=== PATIENT | male | born 1990 | race Caucasian/White ===

== ENCOUNTER 2020-12-06 07:45 | Emergency (ER) | payer MEDICAID, SELFPAY ==
[2020-12-06 07:58] VITALS: BP 131/87; PULSE 50; RESP 18; TEMP 36; O2SAT 100
--- NOTE | 2020-12-06 08:01 | W.ED.GENAD ---
Discharge Plan Disposition Patient Disposition: AGAINST MEDICAL ADVICE Condition: Poor Discharge Details Chief Complaint: Abd Prob Clinical Impression: Acute appendicitis Primary Care Provider: Sarah,Local ED Provider: Arron Vera Home Meds and New Rx's Prescriptions: No Action aspirin 325 MG tablet 650 mg PO PRNRF: 0 ibuprofen 800 MG tablet 800 mg PO TID PRN PRNQty: 30 RF: 0 buprenorphine-naloxone [Suboxone] 8-2 mg Tablet, Sublingual 2 tab SUBLINGUAL DAILY RF: 0 Medical Decision Making 30 yo male with prior history of substance abuse now on suboxone, states he does smoke tobacco and marijuana and drinks occasionally, comes in with abdominal pain. He states on Wednesday he noticed some discomfort in his mid abdomen that resolved and has not had pain since. He has felt well since then and this morning he woke up with severe right sided mid to lower abdominal pain. HE also has nausea and vomit several times. He denies fevers, chest pain, dyspnea. On exam he has a tender rlq and right mid abdomen, no left sided or right upper abdominal tenderness. No back pain or cva tenderness. No urinary symptoms, no testicle pain or swelling. History and exam concerning for possible appendicitis vs pancreatitis vs kidney stone, will obtain labs and ct and reevaluate pt has appendicitis on ct. Discussed with patient and advised he would likely need surgery and ordered antibiotics. I discussed all findings with the patient. He is caox4 and has capacity to make his own decisions. He does not want to stay and wants to leave ama. he understands risks of leaving including permanent disability and and is willing to accept these risks and at present time does not want to stay and would leave against medical advise. I asked if he had any family he could talk to or I could talk to try and get more input on him staying and he is going to talk with his girfriend. He per nursing left before I could reassess him. He left against medical advise and had capacity to make his own decisions and was clinically sober. Differential Diagnosis Differential Diagnosis: appendicitis, kidney stone, pancreatitis Imaging Data Radiologic Study: Attestation: I personally reviewed and interpreted this imaging study as follows: Imaging: CT Scan Radiologist's impression: IMPRESSION: 1. Appendix measuring up to 1 cm in diameter with an enhancing wall and Elsie appendiceal inflammation. High-density material is seen in the mid appendix suspicious for appendicoliths. The findings are suspicious for acute appendicitis. Please correlate clinically. No evidence of abscess or free air. 2. Results of this exam have been verbally communicated with provider HPI General Mode of arrival: ambulatory. Date/Time Provider Initiated Documentation: 12/06/20 07:49. Limitations to Documentation: no limitations. Information obtained by: patient. History of Present Illness 30 year old M presents to the emergency department with the chief complaint of abdominal pain, described as severe, Quality is described as stabbing and aching, and is localized to the abdomen. Patient reports no radiation. Patient started experiencing this hour(s) (3) and it has been constant. No relieving factors improve symptom(s), No exacerbating factors reported . Patient notes nausea/vomiting. Patient did receive the following treatments prior to arrival, none Related Data Home Medications Medication Instructions Recorded Confirmed aspirin 650 mg PO PRN 10/24/12 06/17/14 ibuprofen 800 mg PO TID PRN PRN #30 tab 10/24/12 06/17/14 buprenorphine-naloxone [Suboxone] 2 tab SUBLINGUAL DAILY 12/06/20 12/06/20 Previous Rx's Medication Instructions Recorded ibuprofen 800 mg PO TID PRN PRN #30 tab 10/24/12 Allergies Allergy/AdvReac Type Severity Reaction Status Date / Time No Known Allergies Allergy Unverified 12/06/20 08:02 Review of Systems All systems reviewed & are unremarkable except as noted in HPI and below Constitutional Constitutional: Denies chills, Denies fever(s) and Denies weakness Cardiovascular Cardiovascular: Denies chest pain and Denies dyspnea Respiratory Respiratory: Denies cough and Denies dyspnea Gastrointestinal Gastrointestinal: Denies abdominal pain, Denies nausea and Denies vomiting Musculoskeletal Musculoskeletal: Denies joint swelling Neurologic Neurologic: Denies weakness [facility] Social History Smoking/Tobacco Use Status: Current every day Tobacco Type: cigarettes Smoking risk assessment performed?: Yes Alcohol Intake: current Alcohol Intake frequency: a few times a week Drug use: Occasionally Substance use type: marijuana Exam Const General: no acute distress Orientation: alert HENMT Head: normal to inspection Ears: external ears normal General nose exam: external nose normal Mouth: moist mucous membranes Eyes General: appearance normal, both eyes and all related structures Neck Neck: normal visual inspection Resp Effort & Inspection: normal respiratory effort and able to speak in complete sentences Cardio Rate: regular rate GI Palpation: soft and tender Skin General skin exam: no rashes or lesions noted Neuro General: patient alert and patient oriented x3 Extrem General: normal to inspection Psych Mental Status: mental status grossly normal
--- NOTE | 2020-12-06 08:15 | DI.CT_ITS ---
Exam(s) CT ABDOMEN PELVIS W EXAM: CT ABDOMEN PELVIS W CLINICAL HISTORY: right sided abdomen pain TECHNIQUE: Imaging Protocol: Axial computed tomography images with coronal and sagittal reformatted images were created and reviewed CONTRAST MATERIAL: Intravenous: Omnipaque 350 Contrast volume:100 mL Oral: No COMPARISON: No exams were available for comparison FINDINGS: ABDOMEN: Lung Bases: Normal where visualized. Liver: Normal density. No measurable mass. Portal, Superior Mesenteric, and Splenic Veins: Unremarkable. Gallbladder and Biliary Tract: No radiodense calculus or dilation. Pancreas: Normal density, no abnormal calcifications or inflammatory process. Spleen: Normal. Adrenals: No masses seen. Kidneys: Normal size, contour and axis. No radiodense stones or obstructive uropathy. No masses seen. Abdominal Aorta: Abdominal portion non-dilated. Bowel: No obstruction or bowel wall thickening. There is thickening of the wall of the appendix which measures up to 1 cm in diameter. Elsie appendiceal inflammatory changes are present. There is high density material seen within the appendix suspicious for appendicoliths. Peritoneal Cavity: There is a tiny amount of free fluid in the pelvis. No free air. Lymph Nodes: Within normal limits. Bones: Within normal limits for the patient's age. Soft Tissues: Unremarkable. PELVIS: Bladder: The urinary bladder is incompletely distended. No gross abnormality is identified. Reproductive Organs: Unremarkable as visualized. Lymph Nodes: Within normal limits. Bones: Within normal limits for the patient's age. IMPRESSION: 1. Appendix measuring up to 1 cm in diameter with an enhancing wall and Elsie appendiceal inflammation . High-density material is seen in the mid appendix suspicious for appendicoliths. The findings are suspicious for acute appendicitis. Please correlate clinically. No evidence of abscess or free air . 2. Results of this exam have been verbally communicated with provider. RADIATION DOSE DELIVERED: 656.29mGy.cm Total DLP DATA REPOSITORY: All CT scans at this facility are submitted to the National Radiology Data Registry (NRDR) Dose Index Registry (DIR) with the [employer] (ACR). RADIATION OPTIMIZATION: All CT scans at this facility use at least one of these dose optimization te chniques: automated exposure control; mA and/or kV adjustment per patient size (includes targeted exa ms where dose is matched to clinical indication); or iterative reconstruction.
[2020-12-06] MEDS: Normal Saline 1,000 ML 1000 ML IV (08:23)
[2020-12-06] MEDS: Normal Saline Flush 10 ML SYR IVP (08:24)
[2020-12-06] MEDS: Ondansetron 4 MG/2 ML VIAL IVP (08:32)
[2020-12-06] MEDS: Buprenorphine/Naloxone 8 mg/2 mg FILM 2 EACH SL (08:32)
[2020-12-06] MEDS: Ketorolac 15 MG/ML VIAL IVP (08:32)
[2020-12-06 09:03] LABS: Abs Immature Grans 0.06 10^3/uL (0.0-0.06); Absolute Eosinophil Count 0.16 10^3/uL (0.0-0.7); Basophils % 0.3; Eosinophils % 0.9; HCT 44.9 % (40.0-50.0); HGB 15.6 g/dL (13.5-17.5); Immature Grans % 0.3; Lymphocytes % 9.4; MCH 30.4 pg (27.0-33.0); MCHC 34.7 % (32.0-36.0); MCV 87.4 fL (80-95); MPV 9.7 fL (8.0-11.0); Monocytes % 5.1; Nucleated RBC 0 %; Platelet Count 287 10^3/uL (130-400); RBC 5.14 10^6/uL (4.36-5.78); RDW 13.7 % (11.8-14.1); RDW-SD 44.1 fL; WBC 17.57 10^3/uL (4.4-10.8)
[2020-12-06 09:05] LABS: Absolute Basophil Count 0.05 10^3/uL (0.0-0.2); Absolute Lymphocyte Count 1.65 10^3/uL (1.2-3.4); Absolute Neutrophil Count 14.76 10^3/uL (1.2-6.7)
[2020-12-06 09:11] LABS: Bilirubin Negative (Negative); Blood Negative (Negative); Clarity Cloudy (Clear); Glucose Negative (Negative); Ketones 15 mg/dL (Negative); Leukocyte Esterase Negative (Negative); Nitrite Negative (Negative); Urobilinogen 0.2 EU/dL (Up TO 0.2); pH 8.5 (5-8)
[2020-12-06 09:18] LABS: ALT 18 U/L (16-63); AST 19 U/L (15-37); Albumin 3.8 g/dL (3.4-5.0); Alkaline Phosphatase 62 U/L (46-116); Anion Gap 8.1 mmol/L (3-11); BUN 14 mg/dL (7-18); Bilirubin, Direct 0.1 mg/dL (0.0-0.2); Bilirubin, Total 0.7 mg/dL (0.2-1.0); CO2 26.9 mmol/L (21.0-32.0); CREATININE 0.9 mg/dL (0.70-1.30); Calcium 8.7 mg/dL (8.5-10.1); Chloride 107 mmol/L (98-107); Glucose 101 mg/dL (74-106); Lipase 84 U/L (73-393); Potassium 3.7 mmol/L (3.5-5.1); Sodium 142 mmol/L (136-145)
[2020-12-06 09:21] LABS: Bacteria Negative HPF (Negative); C & S Indicated? No; Casts 0-2 Hyaline LPF (Negative); Crystals Moderate Amorphous HPF (Negative); Epithelial Cells Rare HPF (Negative); Mucus Negative (Negative); RBC Negative HPF (0-2); WBC Negative HPF (0-5)
[2020-12-06] MEDS: Omnipaque 350 MG/ML 100 ML BTL IJ (09:25)
--- NOTE | 2020-12-06 12:32 | NUR.NOTE ---
Nursing Note: [facility] ED called, pt left AMA, requesting that we send the visit information. I faxed to them the MD note, RN note, labs, CT report and the CT sent electronically to the facility. Whit Gray
== END 2020-12-06 10:33 | disposition left against medical advice (07) ==
PROVIDERS: Emergency Provider Emergency Medicine
DX: K35.80 Unspecified acute appendicitis (principal); R11.2 Nausea with vomiting, unspecified; Z53.29 Procedure and treatment not carried out because of patient's decision for other reasons
CPT/HCPCS: 36415; 80053; 83690; 96361; 96374; 96375; 99285; 74177; 81003; 81015; 82248; 85025; 99284; J1885; J2405; J3490

== ENCOUNTER 2021-10-25 16:32 | Emergency (ER) | payer MEDICAID, SELFPAY ==
[2021-10-25 16:45] VITALS: BP 158/109; PULSE 109; RESP 16; TEMP 37.2; O2SAT 98
[2021-10-25] MEDS: Acetaminophen 325 MG TAB 650 MG PO (17:10)
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
== END 2021-10-25 17:17 | disposition home or self-care (01) ==
PROVIDERS: Emergency Provider Physician Assistant
DX: S06.0X0A Concussion without loss of consciousness, initial encounter (principal); S50.01XA Contusion of right elbow, initial encounter; F17.210 Nicotine dependence, cigarettes, uncomplicated; Y04.2XXA Assault by strike against or bumped into by another person, initial encounter
CPT/HCPCS: 99282

== ENCOUNTER 2022-11-28 05:52 | Emergency (ER) | payer OTHER, SELFPAY ==
[2022-11-28] VITALS (28 sets, daily range): BP systolic 103–128; BP diastolic 50–84; PULSE 66–149; RESP 8–20; TEMP 36.9; O2SAT 92–100
--- NOTE | 2022-11-28 05:45 | RT.EKG_ITS ---
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 No STEMI
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
[2022-11-28 06:34] LABS: Abs Immature Grans 0.01 10^3/uL (0.0-0.06); Absolute Basophil Count 0.04 10^3/uL (0.0-0.2); Absolute Eosinophil Count 0.16 10^3/uL (0.0-0.7); Absolute Monocyte Count 0.86 10^3/uL (0.1-0.8); Absolute Neutrophil Count 3.24 10^3/uL (1.2-6.7); Basophils % 0.6; Eosinophils % 2.4; HCT 38.1 % (40.0-50.0); HGB 13.3 g/dL (13.5-17.5); Immature Grans % 0.1; Lymphocytes % 35.8; MCHC 34.9 % (32.0-36.0); MCV 86 fL (80-95); MPV 8.6 fL (8.0-11.0); Monocytes % 12.8; Neutrophils % 48.3; Platelet Count 222 10^3/uL (130-400); RBC 4.43 10^6/uL (4.36-5.78); RDW 13.1 % (11.8-14.1); RDW-SD 40.3 fL; WBC 6.71 10^3/uL (4.4-10.8)
[2022-11-28] MEDS: Normal Saline 1,000 ML 150 ML IV (06:38)
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
[2022-11-28] MEDS: Ketorolac 15 MG/ML VIAL IVP (06:44)
[2022-11-28 06:53] LABS: Salicylate < 2.8 mg/dL (<2.8)
[2022-11-28 06:54] LABS: ALT 39 U/L (16-63); AST 31 U/L (15-37); Albumin 4.1 g/dL (3.4-5.0); Alkaline Phosphatase 67 U/L (46-116); Anion Gap 11.6 mmol/L (3-11); BUN 16 mg/dL (7-18); Bilirubin, Total 0.8 mg/dL (0.2-1.0); CO2 26.4 mmol/L (21.0-32.0); CREATININE 0.8 mg/dL (0.70-1.30); Calcium 8.6 mg/dL (8.5-10.1); Chloride 102 mmol/L (98-107); Estimated GFR 119.84 (mL/min/1.73m2); Glucose 78 mg/dL (74-106); Magnesium 2.2 mg/dL (1.8-2.4); Potassium 3.5 mmol/L (3.5-5.1); Sodium 140 mmol/L (136-145); Total Protein 7.2 g/dL (6.4-8.2)
--- OUTSIDE RECORDS SUMMARY | 2022-11-28 06:58 | XMS_ITS | Continuity of Care Document ---
Author Name Unknown Organization [facility] Address [address] [place] [address] Encounter LTTL_WA FIN NBR [id number] Date(s): 03/23/22 - 03/23/22 [facility] [address] [place], [place] [address] Encounter Diagnosis Endocarditis(Discharge Diagnosis) - 03/23/22 Septic pulmonary embolism(Discharge Diagnosis) - 03/23/22 Discharge Disposition: Left Against Medical Advice Attending Physician: Boston Martinez MD Admitting Physician: Boston Martinez MD Allergies, Adverse Reactions, Alerts No Known Allergies Assessment and Plan Diagnostic Tests Pending * Blood Culture 03/23/22 * Blood Culture 03/23/22 Functional Status 03/23/22 Other exposure to Infectious Disease COV [id number] Symptoms Present Medications cloNIDine 0.1 mg oral tablet 0.1 mg = 1 tab, Oral, BID, # 60 tab, 0 Refill(s) Start Date: 03/23/22 Status: Ordered gabapentin 300 mg oral capsule 300 mg = 1 cap, Oral, BID, # 60 cap, 0 Refill(s) Start Date: 03/23/22 Status: Ordered HYDROmorphone 4 mg oral tablet 4 mg = 1 tab, Oral, every 4 hr, PRN as needed for pain, 0 Refill(s) Start Date: 03/23/22 Status: Ordered Suboxone 8 mg-2 mg sublingual film 1 film, SL, Daily, dissolve under the tongue, 0 Refill(s) Start Date: 03/23/22 Status: Ordered Mental Status 03/23/22 Eye Opening Response Perry Spontaneous ly Best Verbal Response Perry Oriented Best Motor Response Aj Obeys comman ds Perry Coma Score 15 Results Laboratory List Name Date C-Reactive Protein 03/23/22 Sedimentation Rate (ESR) 03/23/22 Lactic Acid 03/23/22 SARS-CoV-2 (COVID-19) PCR (GeneXpert) 03/23/22 CBC w/ Diff 03/23/22 Comprehensive Metabolic Panel (CMP) Lipase Level 03/23/22 PT/ INR 03/23/22 PTT 03/23/22 Troponin-I 03/23/22 Automated Diff 03/23/22 Most recent to oldest [Reference Range]: 1 WBC [4.8-10.8 K/mcL] 7.1 K/mcL (03/23/22 8:37 PM) RBC [4.20-6.10 Million/mcL] 3.86 Million /mcL *LOW* (03/23/22 8:37 PM) Neutro Auto [42.2-75.2 %] 63.3 % (03/23/22 8:37 PM) Lymph Auto [20.5-51.1 %] 17.8 % *LOW* (03/23/22 8:37 PM) Harper Auto [1.7-9.3 %] 11.2 % *HI* (03/23/22 8:37 PM) Basophil Auto [0.0-0.8 %] 0.8 % (03/23/22 8:37 PM) Prothrombin Time [9.1-10.6 seconds] 9.4 seconds (03/23/22 8:37 PM) INR [0.9-1.1] 0.9 (03/23/22 8:37 PM) BUN [8-26 mg/dL] 18 mg/dL (03/23/22 8:37 PM) Glucose Level [74-106 mg/dL] 84 mg/dL (03/23/22 8:37 PM) Potassium Level [3.5-5.1 mmol/L] 3.8 mmo l/L (03/23/22 8:37 PM) Baso Absolute [0.0-0.2 K/mcL] 0.1 K/mcL (03/23/22 8:37 PM) MCV [80.0-99.0 fL] 90.4 fL (03/23/22 8:37 PM) CRP [0.0-9.9] 41.6 1 *HI* (03/23/22 9:30 PM) AST [15-41 IntlUnit/L] 94 IntlUnit/L *HI* (03/23/22 8:37 PM) ALT [17-63 IntlUnit/L] 110 IntlUnit/L *HI* (03/23/22 8:37 PM) MCHC [32.0-36.0 g/dL] 33.2 g/dL (03/23/22 8:37 PM) Osmolality [275-295 mOsm/kg] 275 mOsm/kg (03/23/22 8:37 PM) Troponin-I [<=0.05 ng/mL] <0.01 ng/mL (03/23/22 8:37 PM) Sodium Level [134-143 mmol/L] 137 mmol/L (03/23/22 8:37 PM) Lymph Absolute [1.2-3.4 K/mcL] 1.3 K/mcL (03/23/22 8:37 PM) Hct [37.0-52.0 %] 34.9 % *LOW* (03/23/22 8:37 PM) Lipase Level [18-51 unit/L] 30 unit/L (03/23/22 8:37 PM) Partial Thromboplastin Time [21.3-28.4 s econds] 26.6 seconds (03/23/22 8:37 PM) Calcium Level [8.9-10.3 mg/dL] 8.5 mg/dL *LOW* (03/23/22 8:37 PM) Harper Absolute [0.1-0.6 K/mcL] 0.8 K/mcL *HI* (03/23/22 8:37 PM) Albumin Level [3.5-5.0 g/dL] 2.7 g/dL *LOW* (03/23/22 8:37 PM) Protein Total [6.5-8.1 g/dL] 6.9 g/dL (03/23/22 8:37 PM) MCH [27.0-31.0 pg] 30.1 pg (03/23/22 8:37 PM) Neutro Absolute [1.4-6.5 K/mcL] 4.5 K/mc L (03/23/22 8:37 PM) Bilirubin Total [0.2-1.2 mg/dL] 0.3 mg/d L (03/23/22 8:37 PM) Hgb [12.0-18.0 g/dL] 11.6 g/dL *LOW* (03/23/22 8:37 PM) Alk Phos [38-130 IntlUnit/L] 60 IntlUnit /L (03/23/22 8:37 PM) MPV [7.4-10.4 fL] 8.7 fL (03/23/22 8:37 PM) Platelets [130-400 K/mcL] 347 K/mcL (03/23/22 8:37 PM) CO2 [22-32 mmol/L] 31 mmol/L (03/23/22 8:37 PM) Eos Absolute [0.0-0.2 K/mcL] 0.4 K/mcL *HI* (03/23/22 8:37 PM) Lactic Acid Lvl [0.5-2.2 mmol/L] 1.3 mmo l/L (03/23/22 8:56 PM) eGFR Non-AA 131 *NA* (03/23/22 8:37 PM) eGFR AA 131 *NA* (03/23/22 8:37 PM) Chloride Level [98-111 mmol/L] 99 mmol/L (03/23/22 8:37 PM) RDW-CV [11.5-14.5 %] 14.1 % (03/23/22 8:37 PM) A/G Ratio 0.6 *NA* (03/23/22 8:37 PM) BUN/Creat Ratio [8.0-20.0] 29.5 *HI* (03/23/22 8:37 PM) Globulin 4.2 *NA* (03/23/22 8:37 PM) Imm Gran Absolute 0.06 *NA* (03/23/22 8:37 PM) Imm Gran Auto [0.0-0.5 %] 0.8 % *HI* (03/23/22 8:37 PM) SARS-CoV-2 (COVID-19) PCR (GeneXpert) [N egative] Negative (03/23/22 8:45 PM) Creatinine Level [0.61-1.24 mg/dL] 0.61 mg/dL (03/23/22 8:37 PM) Employed in healthcare? No *NA* (03/23/22 8:45 PM) Symptomatic as defined by CDC? No *NA* (03/23/22 8:45 PM) Hospitalized due to COVID-19? No *NA* (03/23/22 8:45 PM) In ICU? No *NA* (03/23/22 8:45 PM) Group care resident? No *NA* (03/23/22 8:45 PM) status? Not *NA* (03/23/22 8:45 PM) Anion Gap [3.0-12.0] 7.0 (03/23/22 8:37 PM) Eos, Auto [0.00-3.00 %] 6.10 % *HI* (03/23/22 8:37 PM) ESR, Westergren [0-15 mm/hr] 60 mm/hr *HI* (03/23/22 9:30 PM) 1Result Comment: Confirmation on Dilution required and performed/Corrected Result Radiology Reports * Exam Date Time Procedure Performing Provider Status 03/23/22 7:39 PM XR Chest 2 Views DomainUser, Generated; Auth (Verified) Notes: (XR Chest 2 Views) Reason For Exam: chest pain XR Chest 2 Views EXAM DESCRIPTION: XR Chest 2 Views 03/23/2022 INDICATION: CHEST PAIN COMPARISON: None IMPRESSION: No focal infiltrate or pulmonary edema. Normal cardiac size. Irregular nodular fullness in the left hilar region. Mass or adenopathy in this region can not be excluded. CT correlation is recommended. Mild bilateral pleural effusions best seen on the lateral view. No pneumothorax. JOB #: [id number] Final Signed by: Perry Del Rosario MD Signed (Electronic Signature): 03/24/2022 6:04 am Vital Signs Most recent to oldest [Reference Range]: 1 2 3 Temperature Temporal Artery [36-38 Deg C] 37.5 Deg C (03/23/22 8:55 PM) Temperature Temporal Artery (DegF) [97.3-100 Deg F] 99.5 Deg F (03/23/22 8:55 PM) Heart Rate Monitored [60-100 bpm] 75 bpm (03/23/22 9:30 PM) 86 bpm (03/23/22 9:23 PM) 78 bpm (03/23/22 8:30 PM) Respiratory Rate [12-24 br/min] 20 br/min (03/23/22 9:30 PM) 21 br/min (03/23/22 9:23 PM) 16 br/min (03/23/22 8:30 PM) Blood Pressure [90-140/60-90 mmHg] 142/81mmHg *HI* (03/23/22 9:30 PM) 138/78mmHg (03/23/22 9:23 PM) 144/77mmHg *HI* (03/23/22 8:30 PM) Mean Arterial Pressure Cuff 97 mmHg (03/23/22 9:30 PM) 95 mmHg (03/23/22 9:23 PM) 94 mmHg (03/23/22 8:30 PM) Weight Dosing 58.97 kg (03/23/22 7:19 PM) Weight Estimated 58.97 kg (03/23/22 7:09 PM) Height/Length Dosing 188.000 cm (03/23/22 7:19 PM) Height/Length Estimated 188.000 cm (03/23/22 7:09 PM) Social History Social History Type Response Tobacco Current everyday tob acco user Tobacco Use:. Sex Physician Emergency department Note * Nikkie Lamb APRN: PERFORM Event Display: ED Note Physician Authored Date: [id number] HARPER BROOKS :1990 Age:31 years Sex:Male Visit Date:03/23/2022 Chief Complaint Patient reports chest pain that started on Wednesday. Pain continued into morning and called an ambulance. Left CVM AMA. Reason for Consultation Admission-but patient left AMA History of Present Illness Patient is a 31 year old male with history of IVDU, last heroin use 1 week ago, who was admitted [facility] on 03/17 for chest pain. He was diagnosed with septic emboli, multifocal lingular consolidation, bilateral pulmonary emboli, presumed endocarditis, and new finding of WPW. TTE showed no typical features of endocarditis. A MARCO was planned for this week. He was being treated with IV vancomycin, cefepime and apixaban. Patient reports his blood cultures were negative. He left there AMA today stating it was due to?not getting any answers?? . He presented to [facility] ED for continued care.? He had been accepted to the hospitalist service for continuing management including additional testing, IV antibiotics, anticoagulation, and pain control. While in [facility] ED his IV infiltrated during IVantibiotic infusion and patient was refusing to have another IV placed for medication administration or contrast for CT angiography of his chest. ??Concerns were discussed with the patient and his at the risks of setting boundaries and barriers to a productive treatment plan. The risks of sepsis and were also discussed with the patient and his . The patient ultimately decided to leave [facility] Problem List/Past Medical History Ongoing No qualifying data Historical No qualifying data Medications Inpatient No active inpatient medications Home cloNIDine 0.1 mg oral tablet, 0.1 mg= 1 tab, Oral, BID gabapentin 300 mg oral capsule, 300 mg= 1 cap, Oral, BID HYDROmorphone 4 mg oral tablet, 4 mg= 1 tab, Oral, every 4 hr, PRN Suboxone 8 mg-2 mg sublingual film, 1 film, SL, Daily Allergies No Known Allergies Social History Electronic Cigarette/Vaping Electronic Cigarette Use: Use, within last 90 days. Tobacco Current everyday tobacco user Tobacco Use:. Electronically Signed on 03/24/22 01:21 AM Nikkie Lamb APRN * Boston Martinez MD: PERFORM Event Display: ED Note Physician Authored Date: [id number] HARPER BROOKS :1990 Age:31 years Sex:Male Visit Date:03/23/2022 Basic Information Time Seen: Boston Martinez MD / 03/23/2022 19:26 Chief Complaint Patient reports chest pain that started on Wednesday. Pain continued into morning and called an ambulance. Left CVM AMA. History Of Present Illness: 31-year-old male with past medical history significant for IV drug abuse presents to the ER??for chest pain.?? The patient began having chest pain last week and??presented by ambulance to [facility]??several days ago. ??According to??the admission H&P he was diagnosed with bilateral septic emboli??and presumed pericarditis.?? He was started on cefepime and vancomycin.?? TTE reportedly showed no vegetation.?Troponins were reportedly negative. ??No culture results??available. ??He??was maintained as an inpatient there on IV??antibiotics, IV heparin, and transition to apixaban.?? Apparently there are plans for MARCO. ?? According to the patient and his , they became frustrated with lack of communication and felt like nothing was happening.?? They ended up??leaving [facility] today without dischargeinstructions??or prescriptions.?? They got in the car and drove directly here. ?? He says he feels a little better than several days ago but still poorly. ??He has ongoing left-sided chest pain??which started last week.?? He has not noticed fevers or chills over the past few days since being on antibiotics.?? He reports a history of MRSA in the past. Review of Systems: CONSTITUTIONAL:??No fevers or chills. EYES:??No change in vision. ENT:??No sore throat. ??No headache. ??No neck pain. CARDIOVASCULAR:??No palpitations or passing out episodes. RESPIRATORY:??No cough, shortness of breath or hemoptysis. GI:??No abdominal pain. ??No nausea, vomiting or diarrhea. :??No change in urination. SKIN:??No rash. NEUROLOGIC:??No focal numbness or weakness. LYMPH:??No swelling. ?? Review of systems otherwise as stated in HPI ?? Physical Exam Vitals & Measurements T:??37.5?C ??(Temporal Artery)?? HR:??86??(Monitored)?? RR:??21?? BP:??138/78?? SpO2:??96%?? HT:??188.000??cm?? WT:??58.97??kg??(Estimated)?? O2 Therapy:??Room air?? GENERAL:??Weak and alert. ??Mildly anxious. ??Mild discomfort. HEENT:??Normocephalic, atraumatic. ??Mucous membranes are moist. NECK:??Supple. ??Nontender. HEART:??Regular rate and rhythm. ??S1 and S2. ??No murmurs. Chest: Reproducible tenderness to the left sternal border. LUNGS:??Clear to auscultation bilaterally. ??No respiratory distress. ABDOMEN:??Soft, nontender, nondistended. BACK:??Normal to inspection and nontender. EXTREMITIES:??Nontender and without edema. NEUROLOGIC:??Awake, alert, and oriented x3. ??Motor and sensory grossly intact. SKIN:??Warm and dry. VASCULAR:??Radial 2+ bilaterally. Medical Decision Making: Chest pain. ??The patient??left AMA from??another hospital today after being diagnosed with??bilateral pulmonary septic emboli and endocarditis.?? Here he is afebrile nontoxic-appearing??with stable vital signs.?? He was previously on treatment with cefepime, vancomycin, apixaban,??and??several other medications. ??I do not have complete??information from the outside hospital and records have been requested including culture data.?? I have explained to him we do not have specialty care here andlikely cannot perform a MARCO which??would be helpful and further work-up.?? He is requesting admission here.?? I have ordered??cefepime 2 g IV as well as apixaban dosing based on his MAR.?? I do not have culture data or dosing on his vancomycin??at this time.?? Repeat cultures have been sent and arepending. ??At this point I believe he requires IV antibiotics, anticoagulation,??and further care.?? The patient and his understand that we do not have specialty care such as cardiology??or infectious disease??available at this hospital. ??Based on current bed status of surrounding hospitals Shahram not believe there is??possibility for??transfer on an emergency basis??to a tertiary care center??to facilitate ongoing management.?? Hospitalist has been contacted for admission here for medical treatment??and further care. Procedure No Qualifying Data Assessment/Plan 1.??Endocarditis??I38 2.??Septic pulmonary embolism??I26.90 Orders: Blood Culture, Blood, Stat collect, ST - Stat, 03/23/22 20:26:00 EST, Once, Nurse collect, Print Label Blood Culture, Blood, Stat collect, ST - Stat, 03/23/22 20:26:00 EST, Once, Nurse collect, Print Label Decision to Admit, 03/23/22 20:40:00 EST, Medical Unit Lactic Acid, Blood, Stat, 03/23/22 20:26:00 EST, Once, Nurse collect SARS-CoV-2 (COVID-19) PCR (GeneXpert), Nasal Swab, Stat Collect, 03/23/22 20:39:00 EST, Once, Nursecollect, Print Label, No, No, No, No, No, Not XR Chest 2 Views, 03/23/22 19:27:00 EST, Stat, Reason: chest pain, Transport Mode: Ambulatory Medication Reconciliation Unchanged buprenorphine-naloxone (Suboxone 8 mg-2 mg sublingual film)1 Film Sublingual (dissolve under the tongue) every day. dissolve under the tongue. ?? cloNIDine (cloNIDine 0.1 mg oral tablet)1 tab Oral (given by mouth) 2 times a day. ?? gabapentin (gabapentin 300 mg oral capsule)1 Capsules Oral (given by mouth) 2 times a day. ?? HYDROmorphone (HYDROmorphone 4 mg oral tablet)1 tab Oral (given by mouth) every 4 hours as needed as needed for pain. Problem List/Past Medical History Ongoing No qualifying data Historical No qualifying data Medication Administration Given apixaban, 10 mg, Oral cefepime, IV Piggyback Allergies No Known Allergies Social History Electronic Cigarette/Vaping Electronic Cigarette Use: Use, within last 90 days. Tobacco Current everyday tobacco user Tobacco Use:. Diagnostic Results ECG Normal sinus rhythm at 75. ??Inferior Q waves.?? Anteroseptal ST depressions.?? Probable delta wavein the anterolateral leads most prominently??concerning for WPW. Diagnostic Study Interpretation: Chest x-ray PA and lateral:??Left??perihilar fullness. Lab Results CBC and Differential?? LATEST RESULTS?? WBC?? 03/23/22 20:37?? 7.1?? RBC?? 03/23/22 20:37?? 3.86 ??Low?? Hgb?? 03/23/22 20:37?? 11.6 ??Low?? Hct?? 03/23/22 20:37?? 34.9 ??Low?? MCV?? 03/23/22 20:37?? 90.4?? MCH?? 03/23/22 20:37?? 30.1?? MCHC?? 03/23/22 20:37?? 33.2?? RDW-CV?? 03/23/22 20:37?? 14.1?? Platelets?? 03/23/22 20:37?? 347?? MPV?? 03/23/22 20:37?? 8.7?? Neutro Auto?? 03/23/22 20:37?? 63.3?? Lymph Auto?? 03/23/22 20:37?? 17.8 ??Low?? Harper Auto?? 03/23/22 20:37?? 11.2 ??High?? Eos, Auto?? 03/23/22 20:37?? 6.10 ??High?? Basophil Auto?? 03/23/22 20:37?? 0.8?? Imm Gran Auto?? 03/23/22 20:37?? 0.8 ??High?? Neutro Absolute?? 03/23/22 20:37?? 4.5?? Lymph Absolute?? 03/23/22 20:37?? 1.3?? Harper Absolute?? 03/23/22 20:37?? 0.8 ??High?? Eos Absolute?? 03/23/22 20:37?? 0.4 ??High?? Baso Absolute?? 03/23/22 20:37?? 0.1?? Imm Gran Absolute?? 03/23/22 20:37?? 0.06? Coagulation?? LATEST RESULTS?? Prothrombin Time?? 03/23/22 20:37?? 9.4?? INR?? 03/23/22 20:37?? 0.9?? Partial Thromboplastin Time?? 03/23/22 20:37?? 26.6? Routine Chemistry?? LATEST RESULTS?? Sodium Level?? 03/23/22 20:37?? 137?? Potassium Level?? 01/02/23 20:37?? 3.8?? Chloride Level?? 03/23/22 20:37?? 99?? CO2?? 03/23/22 20:37?? 31?? Alk Phos?? 03/23/22 20:37?? 60?? AST?? 03/23/22 20:37?? 94 ??High?? ALT?? 03/23/22 20:37?? 110 ??High?? BUN?? 03/23/22 20:37?? 18?? Glucose Level?? 03/23/22 20:37?? 84?? Creatinine Level?? 03/23/22 20:37?? 0.61?? BUN/Creat Ratio?? 03/23/22 20:37?? 29.5 ??High?? eGFR AA?? 03/23/22 20:37?? 131?? eGFR Non-AA?? 03/23/22 20:37?? 131?? Calcium Level?? 03/23/22 20:37?? 8.5 ??Low?? Protein Total?? 03/23/22 20:37?? 6.9?? Albumin Level?? 03/23/22 20:37?? 2.7 ??Low?? Globulin?? 03/23/22 20:37?? 4.2?? A/G Ratio?? 03/23/22 20:37?? 0.6?? Bilirubin Total?? 03/23/22 20:37?? 0.3?? Anion Gap?? 03/23/22 20:37?? 7.0?? Lipase Level?? 03/23/22 20:37?? 30?? Osmolality?? 03/23/22 20:37?? 275? Cardiac Isoenzymes?? LATEST RESULTS?? Troponin-I?? 03/23/22 20:37?? <0.01? Electronically Signed on 03/23/22 09:37 PM Boston Martinez MD XR Chest 2 Views * Perry Del Rosario MD: VERIFY, VERIFY Event Display: Report EXAM DESCRIPTION: XR Chest 2 Views 03/23/2022 INDICATION: CHEST PAIN COMPARISON: None IMPRESSION: No focal infiltrate or pulmonary edema. Normal cardiac size. Irregular nodular fullness in the left hilar region. Mass or adenopathy in this region can not be excluded. CT correlation is recommended. Mild bilateral pleural effusions best seen on the lateral view. No pneumothorax. JOB #: [id number] Final Signed by: Perry Del Rosario MD Signed (Electronic Signature): 03/24/2022 6:04 am
[2022-11-28 06:59] LABS: Acetaminophen < 2 ug/mL (10-30)
[2022-11-28 07:15] LABS: Troponin I < 50 ng/L (<or=60)
--- NOTE | 2022-11-28 08:05 | DI.RAD_ITS ---
Exam(s) XR KNEE LT 3V AP,LAT,JR EXAM: XR KNEE LT 3V AP,LAT,JR CLINICAL HISTORY: trauma. TECHNIQUE: 2D digital imaging was performed. COMPARISON: CR,XR XR KNEE RT 3V AP,LAT,JR from 11/28/2022 FINDINGS: 3 views No evidence of acute fracture but there is a small joint effusion. No degenerative changes. Bone de nsity normal. No osseous lesions. IMPRESSION: No acute osseous findings in the knee but there is a joint effusion which may signify an internal david angement. DATA REPOSITORY: RADIATION DOSE DELIVERED:
[2022-11-28] MEDS: Omnipaque 350 MG/ML 100 ML BTL IJ (08:13)
[2022-11-28] MEDS: Normal Saline - Diluent 50 ML VIAL IJ (08:13)
--- NOTE | 2022-11-28 08:22 | DI.RAD_ITS ---
Exam(s) XR KNEE RT 3V AP,LAT,JR EXAM: XR KNEE RT 3V AP,LAT,JR CLINICAL HISTORY: trauma. TECHNIQUE: 2D digital imaging was performed. COMPARISON: No exams were available for comparison FINDINGS: 3 views No evidence of acute fracture but there is a joint effusion signifying internal derangement. Mild de generative changes. No osseous lesions IMPRESSION: No fracture. Joint effusion which may signify an internal derangement. DATA REPOSITORY: RADIATION DOSE DELIVERED:
--- NOTE | 2022-11-28 08:25 | DI.CT_ITS ---
Exam(s) CT HEAD CERV SPINE FACIAL WO EXAM: CT HEAD CERV SPINE FACIAL WO CLINICAL HISTORY: trauma. TECHNIQUE: Imaging Protocol: Axial computed tomography images with coronal and sagittal reformatted images were created and reviewed COMPARISON: No exams were available for comparison FINDINGS: CT BRAIN: Abundant motion artifact. There are no obvious skull fractures. There is fluid in the right maxillary sinus.. There is no evidence of obvious intracranial hemorrhage, mass effect, or shift of midline structures. There are no extra-axial fluid collections. The ventricles are not enlarged or shifted and there i s no obvious blood within the ventricular system nor within the basal cisterns. Posterior fossa is quite blurred from motion artifact. CT MAXILLOFACIAL BONES: Significantly deteriorated by motion artifact. Study requires repeating when patient is able told st ill. CT CERVICAL SPINE: Degraded by motion artifact There is no evidence of obvious fracture nor listhesis. No significant prevertebral soft tissue swel ling. No facet malalignment evident. No significant osseous lesions evident. IMPRESSION: All images are degraded by significant motion artifact. No obvious acute intracranial findings on this noninfused CT scan of the brain. No evidence of obvious facial fractures No evidence of obvious cervical spine fracture, malalignment, nor acute compromise of the cervical sp inal canal. Please note the evaluation is limited by motion artifact and given the trauma history here repeat oralia ging should be performed with the patient is able to hold still or is sedated. RADIATION DOSE DELIVERED: 3,306.59mGy.cm Total DLP DATA REPOSITORY: All CT scans at this facility are submitted to the National Radiology Data Registry (NRDR) Dose Index Registry (DIR) with the [employer] (ACR). RADIATION OPTIMIZATION: All CT scans at this facility use at least one of these dose optimization te chniques: automated exposure control; mA and/or kV adjustment per patient size (includes targeted exa ms where dose is matched to clinical indication); or iterative reconstruction.
--- NOTE | 2022-11-28 09:21 | DI.VRAD_ITS ---
PROCEDURE INFORMATION: Exam: XR Left Knee Exam date and time: 11/28/2022 8:13 AM Age: 32 years old Clinical indication: Other: Trauma TECHNIQUE: Imaging protocol: Radiologic exam of the left knee. Views: 3 views. COMPARISON: No relevant prior studies available. FINDINGS: Bones/joints: There is no evidence of acute fracture.There is no evidence of malalignment or dislocation. Soft tissues: Normal. IMPRESSION: There is no evidence of acute fracture.There is no evidence of malalignment or dislocation. Dictated and Authenticated by: Katie Power MD. Ordering:MIGUEL Wilcox MD
--- NOTE | 2022-11-28 09:21 | DI.VRAD_ITS ---
PROCEDURE INFORMATION: Exam: XR Right Knee Exam date and time: 11/28/2022 8:06 AM Age: 32 years old Clinical indication: Other: Trauma TECHNIQUE: Imaging protocol: Radiologic exam of the right knee. Views: 3 views. COMPARISON: No relevant prior studies available. FINDINGS: Bones/joints: There is no evidence of acute fracture.There is no evidence of malalignment or dislocation. Osteophyte formation off the lateral aspect of the right femoral condyle. Minimal osteophyte formation off the superior pole the patella . Mild suprapatellar joint effusion Soft tissues: Soft tissue swelling of the knee IMPRESSION: There is no evidence of acute fracture.There is no evidence of malalignment or dislocation. Dictated and Authenticated by: Katie Power MD. Ordering:MIGUEL Wilcox MD
--- NOTE | 2022-11-28 09:25 | DI.VRAD_ITS ---
PROCEDURE INFORMATION: Preliminary report Exam: CT Head Without Contrast Exam date and time: 11/28/2022 8:15 AM Age: 32 years old Clinical indication: Headache not specified; Maxilla pain; Neck pain; Patient HX: Trauma TECHNIQUE: Imaging protocol: Computed tomography of the head without contrast. Radiation optimization: All CT scans at this facility use at least one of these dose optimization techniques: automated exposure control; mA and/or kV adjustment per patient size (includes targeted exams where dose is matched to clinical indication); or iterative reconstruction. COMPARISON: No relevant prior studies available. FINDINGS: Brain: Evaluation of the posterior fossa is limited by motion artifact. No acute post-traumatic injury in the visualized brain. Symmetric caliber of the cortical sulci. Cerebral ventricles: Normal configuration of the ventricles. Paranasal sinuses: Mucoperiosteal disease and fluid in the sinuses, of greatest severity in the right maxillary sinus. Mastoid air cells: No mastoid effusion. Bones/joints: No gross evidence for acute calvarial injury. Soft tissues: No significant scalp hematoma. IMPRESSION: 1. Evaluation of the posterior fossa is limited by motion artifact. 2. No acute post-traumatic injury in the visualized brain. 3. Additional findings as described above. PROCEDURE INFORMATION: Preliminary report Exam: CT Maxillofacial Without Contrast Exam date and time: 11/28/2022 8:15 AM Age: 32 years old Clinical indication: Headache not specified; Maxilla pain; Neck pain; Patient HX: Trauma TECHNIQUE: Imaging protocol: Computed tomography of the face without contrast. Radiation optimization: All CT scans at this facility use at least one of these dose optimization techniques: automated exposure control; mA and/or kV adjustment per patient size (includes targeted exams where dose is matched to clinical indication); or iterative reconstruction. COMPARISON: No relevant prior studies available. FINDINGS: Orbital cavities: No gross evidence for acute post-traumatic injury involving the globes, optic nerves, and extraocular muscles. Left orbital preseptal hematoma. Bones/joints: Evaluation is significantly compromised by motion artifact. No gross evidence for acute bony injury in the visualized facial bones. Paranasal sinuses: Maxillary and sphenoid sinus polypoid lesions. Right maxillary sinus fluid. Ethmoid sinus mucoperiosteal disease. Soft tissues: Soft tissue swelling in the left malar region. Nasal cavity: Asymmetric caliber of the nasal turbinates, right greater than left. Left quintin bullosa. IMPRESSION: 1. Evaluation is significantly compromised by motion artifact. No gross evidence for acute bony injury in the visualized facial bones. 2. Left orbital preseptal hematoma. 3. Additional findings as described above. PROCEDURE INFORMATION: Preliminary report Exam: CT Cervical Spine Without Contrast Exam date and time: 11/28/2022 8:15 AM Age: 32 years old Clinical indication: Headache not specified; Maxilla pain; Neck pain; Patient HX: Trauma TECHNIQUE: Imaging protocol: Computed tomography of the cervical spine without contrast. Radiation optimization: All CT scans at this facility use at least one of these dose optimization techniques: automated exposure control; mA and/or kV adjustment per patient size (includes targeted exams where dose is matched to clinical indication); or iterative reconstruction. COMPARISON: No relevant prior studies available. FINDINGS: Bones/joints: Evaluation is limited by motion artifact. Given the history of trauma, repeat imaging following patient sedation is recommended for definitive diagnosis. Lungs: Unremarkable lung apices as visualized. Soft tissues: Unremarkable. IMPRESSION: Evaluation is limited by motion artifact. Given the history of trauma, repeat imaging following patient sedation is recommended for definitive diagnosis. Dictated and Authenticated by: Tom Maloney MD. Ordering:MIGUEL Wilcox MD
--- NOTE | 2022-11-28 09:31 | DI.VRAD_ITS ---
PROCEDURE INFORMATION: Exam: CT Thoracic Spine Without Contrast Exam date and time: 11/28/2022 8:43 AM Age: 32 years old Clinical indication: Other: Trauma TECHNIQUE: Imaging protocol: Computed tomography of the thoracic spine without contrast. Radiation optimization: All CT scans at this facility use at least one of these dose optimization techniques: automated exposure control; mA and/or kV adjustment per patient size (includes targeted exams where dose is matched to clinical indication); or iterative reconstruction. COMPARISON: CT HEAD CERV SPINE FACIAL WO 11/28/2022 8:15 AM FINDINGS: Bones/joints: There is no evidence of acute fracture.There is no evidence of malalignment or dislocation. Soft tissues: Unremarkable. IMPRESSION: There is no evidence of acute fracture.There is no evidence of malalignment or dislocation. PROCEDURE INFORMATION: Exam: CT Lumbar Spine Without Contrast Exam date and time: 11/28/2022 8:43 AM Age: 32 years old Clinical indication: Other: Trauma TECHNIQUE: Imaging protocol: Computed tomography of the lumbar spine without contrast. Radiation optimization: All CT scans at this facility use at least one of these dose optimization techniques: automated exposure control; mA and/or kV adjustment per patient size (includes targeted exams where dose is matched to clinical indication); or iterative reconstruction. COMPARISON: CT ABDOMEN PELVIS W 12/06/2020 9:37 AM FINDINGS: Bones/joints: There is no evidence of acute fracture.There is no evidence of malalignment or dislocation. 1.3 cm sclerotic density noted in the L3 vertebral body compatible with bone island (enostosis) in patient without history of neoplastic disease. Nuclear medicine bone scan may be useful for further evaluation if clinically indicated. Soft tissues: Unremarkable. IMPRESSION: There is no evidence of acute fracture.There is no evidence of malalignment or dislocation. Dictated and Authenticated by: Katie Power MD. Ordering:MIGUEL Wilcox MD
[2022-11-28] MEDS: Normal Saline Flush 10 ML SYR IVP (09:35)
--- NOTE | 2022-11-28 09:36 | DI.VRAD_ITS ---
PROCEDURE INFORMATION: Exam: CTA Chest With Contrast Exam date and time: 11/28/2022 8:43 AM Age: 32 years old Clinical indication: Other: Trauma, h/o pe off anticoagulants, ? drug ingestn TECHNIQUE: Imaging protocol: Computed tomographic angiography of the chest with contrast. Exam focused on the arteries. 3D rendering (Not supervised by radiologist): MIP and/or 3D reconstructed images were created by the technologist. Radiation optimization: All CT scans at this facility use at least one of these dose optimization techniques: automated exposure control; mA and/or kV adjustment per patient size (includes targeted exams where dose is matched to clinical indication); or iterative reconstruction. Contrast material: OMNI 350; Contrast volume: 100 ml; Contrast route: INTRAVENOUS (IV); COMPARISON: CT UPPER EXTREMITY RT WO 11/28/2022 8:41 AM FINDINGS: Pulmonary arteries: No definite pulmonary embolism is seen to the level of the lobar pulmonary arterial branches bilaterally. The heterogeneous or decreased density of some small segmental and subsegmental pulmonary arterial branches may reflect inadequate enhancement, beam hardening, or motion, flow, or partial volume averaging artifact. One or more small segmental or subsegmental pulmonary emboli cannot be excluded. . Aorta: Unremarkable. No aortic aneurysm. No aortic dissection. Lungs: Bibasilar atelectasis Pleural spaces: Unremarkable. No pneumothorax. No pleural effusion. Heart: Unremarkable. No cardiomegaly. No pericardial effusion. Lymph nodes: Unremarkable. No enlarged lymph nodes. Bones/joints: Unremarkable. No acute fracture. Soft tissues: Unremarkable. IMPRESSION: No definite pulmonary embolism is seen to the level of the lobar pulmonary arterial branches bilaterally. The heterogeneous or decreased density of some small segmental and subsegmental pulmonary arterial branches may reflect inadequate enhancement, beam hardening, or motion, flow, or partial volume averaging artifact. One or more small segmental or subsegmental pulmonary emboli cannot be excluded. . PROCEDURE INFORMATION: Exam: CT Abdomen And Pelvis With Contrast Exam date and time: 11/28/2022 8:43 AM Age: 32 years old Clinical indication: Other: Trauma, h/o pe off anticoagulants, ? drug ingestn TECHNIQUE: Imaging protocol: Computed tomography of the abdomen and pelvis with contrast. Radiation optimization: All CT scans at this facility use at least one of these dose optimization techniques: automated exposure control; mA and/or kV adjustment per patient size (includes targeted exams where dose is matched to clinical indication); or iterative reconstruction. Contrast material: OMNI 350; Contrast volume: 100 ml; Contrast route: INTRAVENOUS (IV); COMPARISON: CT ABDOMEN PELVIS W 12/06/2020 9:37 AM FINDINGS: Liver: Normal. No mass. Gallbladder and bile ducts: Normal. No calcified stones. No ductal dilation. Pancreas: Normal. No ductal dilation. Spleen: Normal. No splenomegaly. Adrenal glands: Normal. No mass. Kidneys and ureters: Subcentimeter low attenuation area in the left kidney is too small for characterization. Stomach and bowel: Unremarkable. No obstruction. No mucosal thickening. Appendix: No evidence of appendicitis. Intraperitoneal space: Unremarkable. No free air. No significant fluid collection. Vasculature: Unremarkable. No abdominal aortic aneurysm. Lymph nodes: Unremarkable. No enlarged lymph nodes. Urinary bladder: Unremarkable as visualized. Reproductive: Unremarkable as visualized. Bones/joints: Unremarkable. No acute fracture. Soft tissues: Unremarkable. IMPRESSION: No acute process Dictated and Authenticated by: Katie Power MD. Ordering:MIGUEL Wilcox MD
--- NOTE | 2022-11-28 09:45 | DI.VRAD_ITS ---
PROCEDURE INFORMATION: Exam: CT Right Upper Extremity Without Contrast, Shoulder Exam date and time: 11/28/2022 8:41 AM Age: 32 years old Clinical indication: Other: Trauma TECHNIQUE: Imaging protocol: Computed tomography of the right upper extremity without contrast. Exam focused on the shoulder. Radiation optimization: All CT scans at this facility use at least one of these dose optimization techniques: automated exposure control; mA and/or kV adjustment per patient size (includes targeted exams where dose is matched to clinical indication); or iterative reconstruction. COMPARISON: CT HEAD CERV SPINE FACIAL WO 11/28/2022 8:15 AM FINDINGS: Bones/joints: There is no evidence of acute fracture.There is no evidence of malalignment or dislocation. Soft tissues: Normal. IMPRESSION: There is no evidence of acute fracture.There is no evidence of malalignment or dislocation. Dictated and Authenticated by: Katie Power MD. Ordering:MIGUEL Wilcox MD
[2022-11-28 09:55] LABS: Troponin I < 50 ng/L (<or=60)
--- NOTE | 2022-11-28 10:17 | W.EDPROG ---
Date of service: 11/28/22 Time of Service: 10:17 Medical Decision Making Imaging unremarkable though is limited by motion artifact. Pt is clinically sober currently, full range of motion of the eyes, no midline c spine tenderness and has full rom without pain. No abdominal tenderness. He has no hypoxia or tachycardia or evidence of dvt on exam so doubt PE. Labs including delta troponin without concerning findings. He is stable for d/c, return precautions given Sign Out Sign Out Data: Sign Out Comment: This is a 32-year-old male with history of HIV and hepatitis and pulmonary embolus who is noncompliant with medications. He is currently in the custody of law enforcement. He was placed and tells me that he swallowed 10 tablets of 3 mg clonazepam prior to arrival. He also tells me he took everything. He does appear to be clinically intoxicated and I am not sure however I have his history is. He does appear to have tenderness and swelling of the right shoulder and has ecchymosis below the left eye will not look up and I cannot tell if there is any entrapment. We are awaiting CTs of his head, face, chest abdomen and pelvis as well as a CT of the right shoulder. We are also awaiting plain films of both knees. He has been given ketorolac for pain. He will likely be discharged unless there is significant findings on his ancillary services Last updated by Jeri Hair MD at 11/28/22 09:24 Discharge Plan Disposition Patient Disposition: [facility] Condition: Stable Discharge Details Clinical Impression: Blunt head trauma, Blunt trauma of multiple sites of trunk Primary Care Provider: Sarah,Local ED Provider: Arron Vera Home Meds and New Rx's Prescriptions: Continued buprenorphine-naloxone [Suboxone] 12-3 mg film 1 film sublingual DAILY Rx Instructions: Take with an 8mg to total 20mg daily. aspirin 325 MG tablet 650 mg PO PRN ibuprofen 800 MG tablet 800 mg PO TID PRN PRNQty: 30 0RF buprenorphine-naloxone 8-2 mg Tablet, Sublingual 1 tab SUBLINGUAL DAILY Rx Instructions: 20 mgs Discharge Instructions Additional Instructions: Your labs and cat scans as well as xrays did not show concerning findings at this time Discuss with your medical provider if you should continue anticoagulation and be on medication for HIV if you decide you want treatment
== END 2022-11-28 10:34 ==
PROVIDERS: Emergency Medicine Emergency Medical Services; Emergency Provider Emergency Medicine
DX: S09.8XXA Other specified injuries of head, initial encounter (principal); F10.90 Alcohol use, unspecified, uncomplicated; F12.90 Cannabis use, unspecified, uncomplicated; F11.90 Opioid use, unspecified, uncomplicated; M25.511 Pain in right shoulder; Y09 Assault by unspecified means
CPT/HCPCS: 36415; 36416; 71275; 73562; 74177; 80053; 82962; 93005; 96361; 96374; 99285; 70450; 70486; 72125; 73200; 80320; 80329; 83735; 84484; 85025; 93010; 99284; J1885; J3490

== ENCOUNTER 2023-05-10 13:56 | Outpatient (CLI) | payer OTHER, SELFPAY ==
[2023-05-10 11:41] LABS: Abs Immature Grans 0.02 10^3/uL (0.0-0.06); Absolute Basophil Count 0.05 10^3/uL (0.0-0.2); Absolute Eosinophil Count 0.22 10^3/uL (0.0-0.7); Absolute Lymphocyte Count 2.43 10^3/uL (1.2-3.4); Absolute Monocyte Count 0.52 10^3/uL (0.1-0.8); Absolute Neutrophil Count 4.56 10^3/uL (1.2-6.7); Basophils % 0.6; Eosinophils % 2.8; HCT 37.5 % (40.0-50.0); HGB 13.4 g/dL (13.5-17.5); Immature Grans % 0.3; Lymphocytes % 31.2; MCH 30.9 pg (27.0-33.0); MCHC 35.7 % (32.0-36.0); MCV 86 fL (80-95); MPV 8.9 fL (8.0-11.0); Monocytes % 6.7; Neutrophils % 58.4; Platelet Count 219 10^3/uL (130-400); RBC 4.34 10^6/uL (4.36-5.78); RDW 12.9 % (11.8-14.1); RDW-SD 40.3 fL; Reticulocyte 2.1 % (0.5-2.4)
[2023-05-10 11:59] LABS: Prothrombin Time 10.1 sec (9.1-11.1)
[2023-05-10 12:27] LABS: ALT 18 U/L (16-63); AST 19 U/L (15-37); Albumin 4.1 g/dL (3.4-5.0); Alkaline Phosphatase 69 U/L (46-116); Anion Gap 9.6 mmol/L (3-11); BUN 14 mg/dL (7-18); Bilirubin, Total 0.5 mg/dL (0.2-1.0); CO2 27.4 mmol/L (21.0-32.0); Calcium 9.2 mg/dL (8.5-10.1); Chloride 105 mmol/L (98-107); Estimated GFR 101.92 (mL/min/1.73m2); Ferritin 195 ng/mL (26-388); Folate 14.3 ng/mL (8.6-20.0); Glucose 93 mg/dL (74-106); Potassium 4.4 mmol/L (3.5-5.1); Sodium 142 mmol/L (136-145); Total Protein 7.7 g/dL (6.4-8.2); Vitamin B12 717 pg/mL (193-986)
[2023-05-10 12:41] LABS: Iron 59 ug/dL (65-175); Total Iron Binding Capacity 346 ug/dL (250-450); Transferrin Sat 17 % (20-55)
[2023-05-10 12:53] LABS: GGT 9 U/L (15-85)
[2023-05-11 09:42] LABS: Haptoglobin 115 mg/dL (32-197)
== END 2023-05-10 13:57 | disposition home or self-care (01) ==
LOC: LBO 13:57
PROVIDERS: Visit Provider Surgery
DX: F11.90 Opioid use, unspecified, uncomplicated (principal); I45.6 Pre-excitation syndrome; B19.20 Unspecified viral hepatitis C without hepatic coma; I26.90 Septic pulmonary embolism without acute cor pulmonale; D64.9 Anemia, unspecified; K62.5 Hemorrhage of anus and rectum; Z80.0 Family history of malignant neoplasm of digestive organs
CPT/HCPCS: 36415; 80053; 82607; 82728; 82746; 82977; 83010; 83540; 83550; 85025; 85045; 85610

== ENCOUNTER 2023-07-21 07:53 | Outpatient (CLI) | payer OTHER, SELFPAY | END 2023-07-21 07:54 | disposition home or self-care (01) | LOC: DI.CARD 07:53 | PROVIDERS: Visit Provider Internal Medicine Cardiovascular Disease | CPT/HCPCS: 93010 ==